=== PATIENT | female | born 1945 | race Caucasian/White ===

== ENCOUNTER 2017-03-07 06:13 | Emergency (ER) | payer MEDICARE, OTHER ==
[2017-03-07 06:14] VITALS: BMI 25.7
--- NOTE | 2017-03-07 06:18 | C.PDOC ---
History Of Present Illness 71 y/o female presents to ED via EMS with complaint of shortness of breath and wheezing. Speaking in 5-6 word sentences. Patient was given duoneb treatment in the field. Denies fever, chills, chest pain or palpitations. Time Seen by Provider: 03/07/17 06:18 History Per: Patient History/Exam Limitations: no limitations Onset/Duration Of Symptoms: Hrs Current Symptoms Are (Timing): Still Present Current Respiratory Medications: See Home Med List Pain Scale Rating Of: 0 Associated Symptoms: denies: Fever, Chills, Chest Pain, Productive Cough, Dizziness, Anxiety Recent travel outside of the [place]: No Past Medical History Reviewed: Historical Data, Nursing Documentation, Vital Signs Vital Signs: Last Vital Signs Temp 98.1 F 03/07/17 06:18 Pulse 114 H 03/07/17 06:18 Resp 24 03/07/17 06:18 BP 202/83 H 03/07/17 06:18 Pulse Ox 100 03/07/17 06:39 - Medical History PMH: Asthma, Bronchitis, COPD, HTN - [facility] Procedures COLONOSCOPY (01/02/14) CYSTOCEL/RECTOCEL REPAIR (02/13/14) Family History: States: Unknown Family Hx - Social History Hx Tobacco Use: No Hx Alcohol Use: No Hx Substance Use: No - Immunization History Hx Tetanus Toxoid Vaccination: Yes Hx Influenza Vaccination: Yes Hx Pneumococcal Vaccination: Yes Review Of Systems Constitutional: Negative for: Fever, Chills Cardiovascular: Negative for: Chest Pain, Palpitations Respiratory: Positive for: Shortness of Breath, Wheezing. Negative for: Cough Gastrointestinal: Negative for: Nausea, Vomiting Skin: Negative for: Rash Neurological: Negative for: Dizziness Physical Exam - Physical Exam Appears: Non-toxic, Other (speaking in 5-6 word sentences) Skin: Warm, Dry Head: Atraumatic, Normacephalic Chest: Symmetrical Cardiovascular: Rhythm Regular Respiratory: No Accessory Muscle Use, No Rales, No Rhonchi, Wheezing ( bilaterally, diffuse) Gastrointestinal/Abdominal: Soft, No Tenderness Extremity: Normal ROM, Capillary Refill (< 2 sec. ) Neurological/Psych: Oriented x3 ED Course And Treatment ECG: Interpreted By Me ECG Rhythm: Sinus Rhythm Interpretation Of ECG: nonspecific ST/T wave changes Rate From EC (bpm) O2 Sat by Pulse Oximetry: 100 (ra) Pulse Ox Interpretation: Normal Progress Note: EKG, CxR, bloodwork, duoneb, solumedrol. Pt put on potline monitor. Disposition Counseled Patient/Family Regarding: Studies Performed, Diagnosis - Disposition Disposition Time: 06:18 Condition: UNKNOWN - Clinical Impression Clinical Impression: Asthma exacerbation - Scribe Statement The provider has reviewed the documentation as recorded by the Keriibe Romero Flores Provider Scribe Attestation: All medical record entries made by the Scribe were at my direction and personally dictated by me. I have reviewed the chart and agree that the record accurately reflects my personal performance of the history, physical exam, medical decision making, and the department course for this patient. I have also personally directed, reviewed, and agree with the discharge instructions and disposition. Physician Patient Turnover Patient Signed Over To: Teresita Bailon Handoff Comments: pending labs and dispo
[2017-03-07] MEDS ORDERED: Albuterol-Ipratrop 3 mg / 0.5 (3 ml) UD IH SCH (06:45)
[2017-03-07] MEDS ORDERED: Albuterol-Ipratrop 3 mg / 0.5 (3 ml) UD ONE (06:56)
[2017-03-07 07:10] LABS: BASO % 0.3 % (0.0-2.0); EOS # 0.5 K/uL (0.0-0.7); EOS % 5.3 % (0.0-4.0); HEMATOCRIT 41.3 % (34.0-47.0); LYMPH # 1.3 K/uL (1.0-4.3); LYMPH % 13.7 % (20.0-40.0); MEAN CELL VOLUME 85.3 fL (81.0-99.0); MEAN CORPUSCULAR HGB CONC 32.9 g/dL (33.0-37.0); MEAN PLATELET VOLUME 8.8 fL (7.2-11.7); MONO # 0.6 K/uL (0.0-0.8); RED CELL DISTRIBUTION WIDTH 14.5 % (11.5-14.5); WHITE BLOOD COUNT 9.7 K/uL (4.8-10.8)
[2017-03-07 07:12] LABS: ABG ALLEN TEST POS; DRAW SITE RR
[2017-03-07 07:21] LABS: CHLORIDE 102 mmol/L (98-107); POTASSIUM 3.7 mmol/L (3.6-5.2); SODIUM 140 mmol/L (132-148)
[2017-03-07 07:23] LABS: BILIRUBIN,TOTAL < 0.1 mg/dL (0.2-1.3); GFR AFRICAN-AMERICAN > 60
[2017-03-07 07:24] LABS: ALKALINE PHOSPHATASE 96 U/L (38-126); ALT/SGPT 31 U/L (9-52); AST/SGOT 24 U/L (14-36); BLOOD UREA NITROGEN 11 mg/dL (7-17); CARBON DIOXIDE 25 mmol/L (22-30); GLUCOSE,RANDOM 129 mg/dL (65-105); TOTAL PROTEIN 7.8 g/dL (6.3-8.3)
[2017-03-07 07:25] LABS: CALCIUM 9.3 mg/dl (8.6-10.4)
[2017-03-07 08:24] LABS: ALB/GLOB RATIO 1.9 (1.0-2.1)
--- NOTE | 2017-03-07 08:57 | RAD ---
PROCEDURE: CHEST RADIOGRAPH, 1 VIEW HISTORY: SOB COMPARISON: 03/23/2016 FINDINGS: LUNGS: Biapical pleural thickening with upper lobe granulomatous changes. Mild venous congestion. PLEURA: No pneumothorax or pleural fluid seen. CARDIOVASCULAR: Normal. OSSEOUS STRUCTURES: No significant abnormalities. VISUALIZED UPPER ABDOMEN: Normal. OTHER FINDINGS: None. IMPRESSION: Biapical pleural thickening with upper lobe granulomatous changes. Mild venous congestion.
[2017-03-07 09:33] VITALS: BP 150/59; PULSE 96; RESP 18; TEMP 98; O2SAT 97
--- NOTE | 2017-03-10 13:13 | CARD ---
APPROVED REPORT EKG Measurement Heart [id number] <Conclusion> Normal sinus rhythm Possible Left atrial enlargement Borderline ECG
== END 2017-03-07 09:44 | disposition home or self-care (01) ==
LOC: C.ER 06:13
DX: J45.901 Unspecified asthma with (acute) exacerbation (principal)
CPT/HCPCS: 36600; 71010; 80053; 82803; 83880; 85025; 85610; 85730; 87040; 96374; 99285; J2930

== ENCOUNTER 2017-04-04 10:41 | Emergency (ER) | payer MEDICARE ==
[2017-04-04 10:47] VITALS: BMI 30.2
--- NOTE | 2017-04-04 11:15 | C.PDOC ---
History Of Present Illness 71 y/o female with PMHx of Asthma presents to ED with complaints of SOB since yesterday. Patient has no recent admission for Asthma and steroids were taken 1 month ago. Albuterol was used [employer] with no improvement. Patient denies fever, chest pain, or chills. Time Seen by Provider: 04/04/17 10:56 Chief Complaint (Nursing): Shortness Of Breath History Per: Patient History/Exam Limitations: no limitations Onset/Duration Of Symptoms: Days Current Symptoms Are (Timing): Still Present Current Respiratory Medications: Albuterol Associated Symptoms: denies: Fever, Chills Past Medical History Reviewed: Historical Data, Nursing Documentation, Vital Signs Vital Signs: Last Vital Signs Temp 98 F 04/04/17 13:22 Pulse 99 H 04/04/17 13:22 Resp 16 04/04/17 13:22 BP 158/56 H 04/04/17 13:22 Pulse Ox 98 04/04/17 14:38 - Medical History PMH: Asthma, Bronchitis, COPD, HTN, Hypercholesterolemia - [facility] Procedures COLONOSCOPY (01/02/14) CYSTOCEL/RECTOCEL REPAIR (02/13/14) Family History: States: Unknown Family Hx - Social History Hx Tobacco Use: No Hx Alcohol Use: No Hx Substance Use: No - Immunization History Hx Tetanus Toxoid Vaccination: Yes Hx Influenza Vaccination: Yes Hx Pneumococcal Vaccination: Yes Review Of Systems Constitutional: Negative for: Fever, Chills Cardiovascular: Negative for: Chest Pain Respiratory: Positive for: Shortness of Breath. Negative for: Cough Gastrointestinal: Negative for: Nausea, Vomiting, Diarrhea Neurological: Negative for: Weakness, Headache Physical Exam - Physical Exam Appears: Non-toxic, Other (Mild Respiratory Distress) Skin: Normal Color, Warm Head: Atraumatic, Normacephalic Oral Mucosa: Moist Cardiovascular: Rhythm Regular Respiratory: No Rales, No Rhonchi, Wheezing (Diffuse Wheezing) Gastrointestinal/Abdominal: Soft, No Tenderness, No Guarding, No Rebound Extremity: Normal ROM Neurological/Psych: Oriented x3, Normal Speech, Normal Cognition ED Course And Treatment - Laboratory Results Result Diagrams: 04/04/17 11:21 04/04/17 11:21 ECG Rhythm: Sinus Tachycardia ECG Interpretation: Abnormal Interpretation Of ECG: Sinus tachycardia. Biatrial enlargement. Possible inferior infarct, age undetermined. Abnormal ECG Rate From EC O2 Sat by Pulse Oximetry: 98 (RA) - Radiology CXR: Interpreted by Me CXR Interpretation: Yes: No Acute Disease Medical Decision Making Medical Decision Making: Post multiple nebs and IV steroids pt markedly improved Ambulated in the ed with out SOB, Pt feeling comfortable going home She feels combivent used her works better then abl, will rx Plan dc home kkpcp f/u return worse Disposition Counseled Patient/Family Regarding: Need For Followup - Disposition Referrals: Cathie Jacinto MD [Medical Doctor] - Disposition: HOME/ ROUTINE Disposition Time: 14:31 Condition: GOOD Prescriptions: Albuterol HFA [Ventolin HFA 90 mcg/actuation (8 g)] 1 puff IH QID PRN #1 puff PRN Reason: Cough Albuterol/Ipratropium [Duoneb 3 mg/0.5 mg (3 ml) UD] 3 ml IH QID #100 neb Inhaler, Assist Devices [Space Chamber Plus] 1 each MC PRN #1 spacer Methylprednisolone [Medrol Dose Pack (21 tabs)] 1 kit PO . DIRECTED #21 packet Instructions: Asthma (ED) Print Language: BENGALI - Clinical Impression Clinical Impression: Asthma attack - PA / [employer] / Resident Statement MD/DO has reviewed & agrees with the documentation as recorded. MD/DO has examined the patient and agrees with the treatment plan. - Scribe Statement The provider has reviewed the documentation as recorded by the Keren De La Garza All medical record entries made by the Keriibjose r were at my direction and personally dictated by me. I have reviewed the chart and agree that the record accurately reflects my personal performance of the history, physical exam, medical decision making, and the department course for this patient. I have also personally directed, reviewed, and agree with the discharge instructions and disposition.
[2017-04-04] MEDS ORDERED: Albuterol-Ipratrop 3 mg / 0.5 (3 ml) UD ONE (11:17)
[2017-04-04] MEDS: Albuterol-Ipratrop 3 mg / 0.5 (3 ml) UD IH SCH ×3 (11:20→12:08)
[2017-04-04 11:25] LABS: BASO % 0.4 % (0.0-2.0); EOS # 0.6 K/uL (0.0-0.7); EOS % 7.6 % (0.0-4.0); HEMATOCRIT 40.9 % (34.0-47.0); LYMPH # 1.1 K/uL (1.0-4.3); LYMPH % 13.4 % (20.0-40.0); MEAN CORPUSCULAR HEMOGLOBIN 28.2 pg (27.0-31.0); MEAN CORPUSCULAR HGB CONC 33.1 g/dL (33.0-37.0); MEAN PLATELET VOLUME 8.2 fL (7.2-11.7); MONO # 0.6 K/uL (0.0-0.8); MONO % 7.2 % (0.0-10.0); RED CELL DISTRIBUTION WIDTH 14.2 % (11.5-14.5); WHITE BLOOD COUNT 8.5 K/uL (4.8-10.8)
[2017-04-04 11:37] LABS: CHLORIDE 104 mmol/L (98-107)
[2017-04-04 11:38] LABS: POTASSIUM 3.7 mmol/L (3.6-5.2); SODIUM 139 mmol/L (132-148)
[2017-04-04 11:40] LABS: GFR AFRICAN-AMERICAN > 60
[2017-04-04 11:41] LABS: ALB/GLOB RATIO 1.3 (1.0-2.1); ALKALINE PHOSPHATASE 96 U/L (38-126); ALT/SGPT 21 U/L (9-52); AST/SGOT 29 U/L (14-36); BILIRUBIN,TOTAL 0.7 mg/dL (0.2-1.3); BLOOD UREA NITROGEN 9 mg/dL (7-17); CALCIUM 9.3 mg/dl (8.6-10.4); CARBON DIOXIDE 26 mmol/L (22-30); GLUCOSE,RANDOM 114 mg/dL (65-105); TOTAL PROTEIN 7.6 g/dL (6.3-8.3)
--- NOTE | 2017-04-04 12:21 | RAD ---
PROCEDURE: CHEST RADIOGRAPH, 1 VIEW HISTORY: SOB COMPARISON: Comparison chest 03/07/2017. . FINDINGS: LUNGS: Mild hyperinflation. There appears to be some mild bibasilar atelectasis. Previously noted mild apical pleural thickening and small nodules in the right middle lobe and lower lobe as well as focal area nodularity along the fissure on the left side less well seen. Mild emphysematous changes also less well seen. PLEURA: No pneumothorax or pleural fluid seen. CARDIOVASCULAR: Normal. OSSEOUS STRUCTURES: No significant abnormalities. VISUALIZED UPPER ABDOMEN: Normal. OTHER FINDINGS: None. IMPRESSION: Mild hyperinflation. Mild bibasilar atelectasis suspected. Previously noted mild apical pleural thickening and small nodules in the right middle lobe and lower lobe as well as focal area nodularity along the fissure on the left side less well seen. Mild emphysematous changes also less well seen.
[2017-04-04 13:23] VITALS: BP 158/56; PULSE 99; RESP 16; TEMP 98
[2017-04-04 14:36] VITALS: O2SAT 98
== END 2017-04-04 14:49 | disposition home or self-care (01) ==
LOC: C.ER 10:41
DX: J45.909 Unspecified asthma, uncomplicated (principal)
CPT/HCPCS: 71010; 80053; 83880; 84484; 85025; 94150; 94640; 96374; 99283; J2930